=== PATIENT | female | born 1980 | race Caucasian/White ===

== ENCOUNTER 2018-02-12 21:06 | Emergency (ER) | payer BC ==
[2018-02-12 21:08] VITALS: Ht 167.6 cm
[2018-02-12 23:02] VITALS: BP 138/83
== END 2018-02-12 23:03 | disposition home or self-care (01) ==
LOC: ED 21:06
DX: S61.215A Laceration without foreign body of left ring finger without damage to nail, initial encounter (principal); S61.213A Laceration without foreign body of left middle finger without damage to nail, initial encounter; W26.0XXA Contact with knife, initial encounter; Y93.89 Activity, other specified; Y92.090 Kitchen in other non-institutional residence as the place of occurrence of the external cause; Y99.8 Other external cause status
CPT/HCPCS: J2001

== ENCOUNTER 2018-02-23 19:12 | Emergency (ER) | payer BC | END 2018-02-23 19:25 | disposition left against medical advice (07) | LOC: ED 19:12 | DX: Z53.21 Procedure and treatment not carried out due to patient leaving prior to being seen by health care provider (principal) ==

== ENCOUNTER 2018-02-25 22:11 | Emergency (ER) | payer BC ==
[~2018-02-25] VITALS: Ht 167.6 cm; Wt 121.1 kg
[2018-02-25 22:26] VITALS: Ht 167.6 cm; Wt 121.1 kg
[2018-02-25 23:11] VITALS: BP 142/58
== END 2018-02-25 23:12 | disposition home or self-care (01) ==
LOC: ED 22:11
DX: S61.213D Laceration without foreign body of left middle finger without damage to nail, subsequent encounter (principal); S61.215D Laceration without foreign body of left ring finger without damage to nail, subsequent encounter